=== PATIENT | male | born 1995 | race Caucasian/White ===

== ENCOUNTER 2021-03-14 08:23 | Emergency (ER) | payer BC ==
[~2021-03-14] VITALS: Ht 188 cm; Wt 68.0 kg
--- NOTE | 2021-03-14 08:41 | NUR ---
ARRIVAL PRESENTED TO ED RM#4 AMBULATORY WITH C/O FEVER/CHILLS/BODY ACHES THAT STARTED THIS MORNING AND STATED HE FELT BAD YESTERDAY. HAS TAKEN ONE DOSE OF IBUPROFEN LAST NIGHT AT 2200. VS OBTAINED. DR. DELEON NOTIFIED OF PATIENT ARRIVAL.
[2021-03-14 08:47] VITALS: BP 124/46
--- NOTE | 2021-03-14 08:55 | ER.PDOC ---
General Chief Complaint: Requesting Medical Care Stated Complaint: FEVER,COUGH,CHILLS Time seen by MD: 08:54 Source: patient Exam Limitations: no limitations History of Present Illness Initial Comments 25-year-old male presenting with cough, congestion, sore throat, and chills for 1 day. Patient states that he thinks he may have tonsillitis but is not sure. Unvaccinated for COVID or flu. Has tried Advil without any relief. Denies any diarrhea, no rashes, but does/did have one episode of vomiting this morning. Works in the [employer]. Timing/Duration: abrupt Severity: mild Associated Symptoms: fever/chills, runny nose, sinus pain/drainage, sore throat, cough Worsen By: deep breathing Allergies: Coded Allergies: No Known Allergies (Unverified , 03/14/21) All Other Systems: Reviewed and Negative Past Medical History Medical History: no pertinent history Surgical History: no surgical history Social History Alcohol Use: occassionally Drug Use: none Physical Exam General Appearance: alert, no distress Eye: eyes nml inspection, lids & conjunct. nml, PERRL, no nystagmus Ear: ear nml Nose: nose nml Throat: pharynx nml, airway nml Neck: nml inspection, supple Respiratory: no resp.distress, breath sounds nml Abdomen: non-tender, no organomegaly CVS: reg rate & rhythm, heart sounds nml Skin: color nml, no rash, warm/dry Extremities: non-tender, nml ROM, no pedal edema NEURO/PSYCH: oriented x 3, CN's nml as tested, motor nml, sensation nml, mood/affect nml Results/Orders Results/Orders Orders - EJESIEME,BOB C DO Covid19 Antigen Aminata Shelley (03/14/21 08:34) Influenza A&B (03/14/21 08:34) Strep Screen (03/14/21 08:34) Vital Signs Date Time Temp Pulse Resp B/P (MAP) Pulse Ox O2 Delivery O2 Flow Rate FiO2 03/14/21 08:47 98.6 85 17 100 03/14/21 08:47 98.6 85 17 03/14/21 08:47 98.6 85 17 124/46 (72) 100 Room Air Laboratory Tests Test 03/14/21 08:55 Influenza Type A Antigen NEGATIVE (NEG) Influenza Type B Antigen NEGATIVE (NEG) SARS-CoV-2 Antigen (Rapid) POSITIVE (NEGATIVE) *A Group A Streptococcus Screen NEGATIVE (NEGATIVE) Progress Progress + covid Hemodynamically stable will dispo for CDC guided Quarantine ER DEPART Departure Time of Disposition: 09:12 Disposition: 01 HOME / SELF CARE / HOMELESS Impression: Primary Impression: COVID-19 Condition: Stable Patient Instructions: COVID Referrals: PCP,UNKNOWN (PCP) PRIMARY CARE PROVIDER Duration or Time Spent with Pa: 15 min BOB DELEON DO Mar 14, 2021 08:55
--- NOTE | 2021-03-14 09:11 | NUR ---
CRITICAL LAB COVID-19 POSITIVE, REPORTED TO DR. DELEON.
[2021-03-14 09:14] VITALS: BP 125/46
== END 2021-03-14 09:15 | disposition home or self-care (01) ==
LOC: ER 08:23
DX: U07.1 COVID-19 (principal)
CPT/HCPCS: 87070; 87426; 87804; 87880; 99283